=== PATIENT | male | born 1995 ===

== ENCOUNTER 2016-07-11 20:06 | Emergency (ER) | payer OTHER ==
[~2016-07-11] VITALS: Ht 175.3 cm; Wt 56.7 kg
--- NOTE | 2016-07-11 21:18 | ED AMS/SEIZURE/WEAK/DIZZY ---
History of Present Illness General Chief Complaint: Dizziness Stated Complaint: SENT BY WALKIN FOR VERTIGO Source: patient Exam Limitations: no limitations Vital Signs & Intake/Output Vital Signs & Intake/Output Vital Signs Date Time Temp Pulse Resp B/P Pulse O2 O2 Flow FiO2 Ox Delivery Rate 07/11 2231 96.7 92 18 133/66 98 Room Air 07/11 2012 97.7 91 18 126/69 98 Room Air ED Intake and Output 07/12 0000 07/11 1200 Intake Total Output Total Balance Patient 125 lb Weight Allergies Coded Allergies: No Known Allergies (07/11/16) Reconcile Medications Meclizine HCl 25 MG TABLET 1 TAB PO Q8 PRN dizziness Metoclopramide HCl (Reglan) 10 MG TABLET 1 TAB PO 4 TIMES/DAY PRN nausea/ dizziness Triage Note: REPORTS INTERMITTENT DIZZINES WITH BLURRY VISION AND INTERMITTENT VOMITING SINCE 1700 X 3. HE WAS EVALUATED AT THE [facility] AND THEY WERE UNABEL TO OBTAINE LABS FOR HE WAS RECOMMENDED TO BE EVALUATED HERE. Triage Nurses Notes Reviewed? yes HPI: Patient is a 21-year-old male presents for evaluation of dizziness. Dizziness onset at approximately 11 AM this morning. Dizziness is a spinning sensation, worse when exposed to heat. 4-5 episodes of vomiting since onset of dizziness. Patient was seen at an urgent care clinic, given a dose of Zofran and referred to the emergency department for further evaluation. Symptoms are currently moderate. Patient denies headache, chest pain, palpitations, extremity numbness , weakness, fevers, chills, nasal congestion, tinnitus. (SIERRA CINTRON) Past History Travel History Traveled to [place] past 21 day No Medical History Any Pertinent Medical History? none Surgical History Surgical History: non-contributory Psychosocial History What is your primary language Divehi Tobacco Use: Never used Family History Hx Contributory? No (SIERRA CINTRON) Review of Systems Review of Systems Constitutional: Denies: chills, fever, weakness. EENTM: Denies: ear pain, nasal congestion, throat pain. Respiratory: Denies: cough, short of breath. Cardiovascular: Denies: chest pain. GI: Reports: nausea, vomiting. Denies: abdominal pain. Genitourinary: Reports: no symptoms. Musculoskeletal: Denies: back pain, neck pain. Skin: Reports: no symptoms. Neurological/Psychological: Reports: see HPI. Hematologic/Endocrine: Reports: no symptoms. Immunologic/Allergic: Reports: no symptoms. (SIERRA CINTRON) Physical Exam Physical Exam General Appearance: well developed/nourished, alert, awake Head: atraumatic, normal appearance Eyes: Bilateral: other (mild horizontal nystagmus). 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 No CVA/TIA Diagnosis: No Severe Sepsis Present: No Septic Shock Present: No (SIERRA CINTRON) Progress Differential Diagnosis: arrythmia, alcohol intoxication, benign positional vertigo, CVA/stroke, dehydration, drug intoxication, encephalitis, electrolyte imbalance, hypoglycemia, intracranial Hem., intracranial mass/tumor, multiple sclerosis, seizure disorder, subarachnoid Hem., vertebrobasilar insuff Plan of Care: Orders Procedure Date/time Status COMPREHENSIVE METABOLIC PANEL 07/11 2124 Complete CBC WITHOUT DIFFERENTIAL 07/11 2124 Complete Laboratory Tests 07/11/168: Anion Gap 14, Estimated GFR > 60, BUN/Creatinine Ratio 18.6, Glucose 127 H, Calcium 10.2, Total Bilirubin 0.8, AST 19, ALT 29, Alkaline Phosphatase 78, Total Protein 7.7, Albumin 4.9, Globulin 2.8, Albumin/Globulin Ratio 1.8, CBC w Diff NO MAN DIFF REQ, RBC 5.59, MCV 85.4, MCH 28.9, RDW 13.3, MPV 7.9, Gran % 94.6 H, Lymphocytes % 4.5 L, Monocytes % 0.8 L, Eosinophils % 0.1, Basophils % 0 L, Absolute Granulocytes 15.0 H, Absolute Lymphocytes 0.7 L, Absolute Monocytes 0.1 L, Absolute Eosinophils 0, Absolute Basophils 0, PUBS MCHC 33.9 07/11/2016 10:28:39 PM: Patient reports he just vomited again. He is unsure if there was pill fragment of the Meclizine in his emesis. Dizziness is improving. Nausea intermittent. Patient declined any further medication at this time. Patient ambulating with normal gait. 07/11/2016 10:50:23 PM: Patient ambulatory without difficulty. Patient tolerating water. Discussed results of labs with patient. No acute neurologic abnormalities. Patient appears stable for discharge. (SIERRA CINTRON) Initial ED EKG: none (SIERRA CINTRON) Departure Departure Time of Disposition: 2250 Disposition: HOME OR SELF CARE Condition: Stable Clinical Impression Primary Impression: Vertigo Referrals: TRAN DARNELL,HERB HUSSEIN MD,LAURA PATIENT HAS NO PRIMARY CARE DR (PCP/Family) Additional Instructions: Drink plenty of fluids. Follow-up with one of the primary doctors listed in her discharge paperwork to establish doctor for further evaluation. Return to the emergency department if headache, numbness, weakness, unable to stay hydrated, or worsening of symptoms. Departure Forms: Customer Survey General Discharge Information Prescriptions: Current Visit Scripts Meclizine HCl 1 TAB PO Q8 PRN dizziness #12 TAB Metoclopramide HCl (Reglan) 1 TAB PO 4 TIMES/DAY PRN nausea/dizziness #12 TAB (SIERRA CINTRON) PA/LICENSED MARRIAGE AND FAMILY THERAPIST Co-Sign Statement Statement: ED Attending supervision documentation- [] I saw and evaluated the patient. I have also reviewed all the pertinent lab results and diagnostic results. I agree with the findings and the plan of care as documented in the PA's/LICENSED MARRIAGE AND FAMILY THERAPIST's documentation. [x] I have reviewed the ED Record and agree with the PA's/LICENSED MARRIAGE AND FAMILY THERAPIST's documentation. [] Additions or exceptions (if any) to the PAs/LICENSED MARRIAGE AND FAMILY THERAPIST's note and plan are summarized below: [] (JAYLENE SOTELO,AZUCENA)
[2016-07-11 22:20] LABS: ABSOLUTE BASOPHIL COUNT 0 /CUMM (0.0-0.2); ABSOLUTE EOSINOPHIL COUNT 0 /CUMM (0.0-0.7); ABSOLUTE LYMPH COUNT 0.7 /CUMM (1.2-3.4); ABSOLUTE MONOCYTE COUNT 0.1 /CUMM (0.10-0.60); BASOPHIL % 0 % (0.0-2.0); EOSINOPHIL % 0.1 % (0-5); HEMATOCRIT 47.8 % (42-52); MEAN CORPUSCULAR HGB 28.9 PG (27.0-31.0); MEAN CORPUSCULAR HGB CONC 33.9 G/DL (33.0-37.0); MEAN CORPUSCULAR VOLUME 85.4 FL (80.0-94.0); MEAN PLATELET VOLUME 7.9 FL (7.4-10.4); PLATELET COUNT 389 /CUMM (130-400); RBC DISTRIBUTION WIDTH 13.3 % (11.5-14.5); RED BLOOD CELL CT 5.59 /CUMM (4.70-6.10); WHITE BLOOD CELL COUNT 15.8 /CUMM (4.8-10.8)
[2016-07-11 22:32] VITALS: BP 133/66
[2016-07-11 22:33] LABS: GRANULOCYTE % 94.6 % (42.2-75.2)
[2016-07-11] MEDS ORDERED: MECLIZINE HCL25 MG PO (22:52)
[2016-07-11] MEDS ORDERED: REGLAN10 M1 PO (22:52)
== END 2016-07-11 23:23 ==
LOC: ERH 20:06
PROVIDERS: Physician Assistant
DX: R42 Dizziness and giddiness (principal); R11.10 Vomiting, unspecified